=== PATIENT | female | born 1995 | race African-American/Black ===

== ENCOUNTER 2022-08-27 17:19 | Emergency (ER) | payer OTHER ==
[2022-08-27 17:26] VITALS: BP 148/78; PULSE 74; RESP 18; TEMP 98.9; BMI 40.7
[2022-08-27] MEDS ORDERED: LIDOCAINE 5% TOPICAL PATCH TP ONE (18:36)
[2022-08-27] MEDS ORDERED: IBUPROFEN 600 MG TABLET (FP) PO ONE ×2 (18:36→18:47)
[2022-08-27] MEDS ORDERED: LIDOCAINE 5% TOPICAL PATCH ONE (18:47)
[2022-08-28] MEDS ORDERED: LIDOCAINE PATCH REMOVAL MC SCH (07:00)
== END 2022-08-27 19:08 | disposition home or self-care (01) ==
LOC: JERFT 17:19
DX: S93.401A Sprain of unspecified ligament of right ankle, initial encounter (principal); M25.572 Pain in left ankle and joints of left foot; X50.1XXA Overexertion from prolonged static or awkward postures, initial encounter; Y93.01 Activity, walking, marching and hiking; Y92.828 Other wilderness area as the place of occurrence of the external cause
CPT/HCPCS: 73610-TC-LT-FY; 73630-TC-LT; 99283-25